=== PATIENT | male | born 1975 | race Caucasian/White ===

== ENCOUNTER 2017-04-08 20:59 | Emergency (ER) | payer SELFPAY ==
[~2017-04-08 20:59] MED LIST: AMOX875T20 PO; LORT7.5T3 PO; Z.0.NO CURRENT MEDS
[2017-04-08 21:05] VITALS: BP 169/94; PULSE 90; RESP 20; TEMP 97.8
[2017-04-08] MEDS ORDERED: NAPR500 PO (21:14)
[2017-04-08] MEDS ORDERED: LIDOCAINE HCL 1% 50 ML VIAL INFIL ONE (21:45)
[2017-04-08] MEDS ORDERED: HYDROmorphone HCL PF 1 MG/ML VIAL IM ONE (21:45)
[2017-04-08] MEDS ORDERED: HYDR-3533 PO (22:22)
[2017-04-08] MEDS ORDERED: BACT800T5 PO (22:22)
--- NOTE | 2017-04-08 22:22 | PD ---
HPI Chief Complaint: Skin Problem Time Seen by Provider: 21:36 Travel History International Travel<30 days: No Contact w/Intl Traveler<30days: No Traveled to known affect area: No History of Present Illness HPI Is a 41-year-old man who presents to the emergency department complaining of left arm abscess. He said worsening left arm pain and redness is been getting gradually worse purulent drainage over the past week or so. He ruptured volume was hammering daily 2 ago. He's had worsening pain and swelling since then. He also had some chills today and fatigued. History Past Medical History Medical History: Denies Significant Hx Influenza Vaccination: No Social History Alcohol Use: Yes ("A FEW DRINKS DAILY") Tobacco Use: Yes (1 PK PER DAY) Allergies-Medications (Allergen,Severity, Reaction): Uncoded Allergies: UNKNOWN ANESTHETIC (Allergy, Severe, 05/09/11) UNABLE TO URINATE Reported Meds & Prescriptions Reported Meds & Active Scripts Active Reported Naprosyn (Naproxen) 500 Mg Tab 500 Mg PO BID Review of Systems Except as stated in HPI: all other systems reviewed are Neg Physical Exam Narrative GENERAL: Well-appearing 41-year-old man, no acute distress. SKIN: Warm and dry. CARDIOVASCULAR: Warm and well perfused. RESPIRATORY: Normal rate and effort. MUSCULOSKELETAL: Left arm in the brachium, laterally, is an abscess. There is a central ulceration with macerated tissue and some purulent drainage surrounded by marked induration and erythema with significant tenderness and warmth. Central ulcerations about a centimeter in diameter with visible subcutaneous fatty inflamed tissue. The surrounding area of induration and erythema is approximately 8 x 6 cm. NEUROLOGICAL: Awake and alert. No gross deficits. Data Data Last Documented VS Vital Signs Date Time Temp Pulse Resp B/P Pulse Ox O2 Delivery O2 Flow Rate FiO2 04/08/17 21:05 97.8 90 20 169/94 Orders Lidocaine 1% Inj (50 Ml) (Xylocaine 1% I (04/08/17 21:45) Hydromorphone Pf Inj (Dilaudid Pf Inj) (04/08/17 21:45) Wound Culture And Gram Stain (04/08/17 22:15) MDM Medical Decision Making Medical Screen Exam Complete: Yes Emergency Medical Condition: Yes Differential Diagnosis Abscess, cellulitis, other Narrative Course Medical decision making Is a 41-year-old man who presents to the emergency department with abscess the left arm. I&D was performed. Copious drainage was expressed. Wound culture was obtained. Patient tolerated well. Procedures Procedure Narrative INCISION AND DRAINAGE OF ABSCESS: The area was prepped and was sterilely draped. A subcutaneous wheal of % Xylocaine 1 with a total number 5 mL was used to anesthetize the area. The area was properly anesthetized. A number 11 scalpel was used to make a 1.5-cm incision across the area of the abscess. Cultures were obtained. The abscess was drained an irrigated with normal saline. Quarter inch iodoform packing was placed in the wound. Sterile dressing applied. Patient advised to have packing removed in two days. Diagnosis Primary Impression: Abscess of left arm Additional Instructions: Take antibiotics as prescribed. Use Lortab if needed for pain. Use caution as it can cause drowsiness. Do not take this and use power tools or drive. Shower normally daily. Clean wound with soap and water. Keep covered while you 're working. Med/Other Pt SpecificInfo: Prescription(s) given Scripts Hydrocodone-Acetaminophen (Lortab)5-325 Mg Tab1-2 Tab PO Q6H PRN (PAIN) #20 TAB Prov:Luis Guerra MD 04/08/17 Sulfamethoxazole-Trimethoprim (Bactrim DS)800-160 Mg Tab1 Tab PO BID 7 Days Prov:Luis Guerra MD 04/08/17 Disposition: 01 DISCHARGE HOME Condition: Stable Luis Guerra MD Apr 08, 2017 22:22
[2017-04-08 22:46] VITALS: BP 152/88
== END 2017-04-08 23:23 | disposition home or self-care (01) ==
LOC: PHED 20:59
DX: L02.414 Cutaneous abscess of left upper limb (principal); B95.62 Methicillin resistant Staphylococcus aureus infection as the cause of diseases classified elsewhere
CPT/HCPCS: 10061; 86403; 87070; 87186; 96372; 99284; J1170; 87205